=== PATIENT | male | born 1955 | race Caucasian/White ===

== ENCOUNTER → 2017-06-03 | Outpatient (CLI) | payer OTHER ==
[~2017-06-03] MED LIST: ALLO300T2 PO; ATEN-171 PO; DUTACAP PO; POTA10TA; SIMV20TA2 PO
--- NOTE | 2017-06-03 14:52 | DIAGNOSTIC IMAGING REPORT ---
SI JOINTS 3 OR MORE VIEWS HISTORY: 61 years-old Male PAIN acute pain of the SI joints. COMPARISON: None available TECHNIQUE: 3 views of the SI joints FINDINGS: Mild subchondral sclerosis involves the bilateral sacroiliac joints compatible with mild degenerative changes. No evidence of erosive arthropathy, acute fracture or subluxation. The sacrum appears intact. Ill-defined linear sclerosis of the left femoral head is noted without articular collapse. Probable phleboliths of the pelvis. IMPRESSION: 1. Mild degenerative changes of the bilateral SI joints without acute fracture. 2. Ill-defined linear sclerosis of the left femoral head may reflect avascular necrosis without articular collapse. The above report was generated using voice recognition software. It may contain grammatical, syntax or spelling errors. Electronically signed by: Bill Holloway M.D. 06/03/2017 2:50 PM Dictated Date/Time: 06/03/2017 2:48 PM
--- NOTE | 2017-06-03 14:57 | DIAGNOSTIC IMAGING REPORT ---
LEG LENGTH STUDY (WHOLE LEG) CLINICAL HISTORY: LENGTH DISCREPANCY COMPARISON STUDY: None FINDINGS: 1 leg length images demonstrate the right leg to measure 90.3 cm overall. The left leg measures 91.6 cm overall. The right leg is shorter x 1.3 cm. Right femoral length is 50.6 cm with left femoral length 51 cm. This is a 4 mm discrepancy. IMPRESSION: 1. Overall right leg length 90.3 cm 2. Overall leg left leg length 91.6 cm. 3. Right leg overall is 1.3 cm shorter than the left. The above report was generated using voice recognition software. It may contain grammatical, syntax or spelling errors. Electronically signed by: Douglas Coles M.D. 06/03/2017 2:56 PM Dictated Date/Time: 06/03/2017 2:52 PM
== END | disposition home or self-care (01) ==
LOC: C.RADBC 14:18
PROVIDERS: ATTEND Physician Assistant
DX: M46.1 Sacroiliitis, not elsewhere classified (principal); M21.751 Unequal limb length (acquired), right femur

== ENCOUNTER → 2017-06-11 | Outpatient (CLI) | payer OTHER ==
--- NOTE | 2017-06-11 09:35 | DIAGNOSTIC IMAGING REPORT ---
L HIP UNILATERAL 2 VIEWS CLINICAL HISTORY: LEFT HIP ABNORMALITY COMPARISON: 06/03/2017 DISCUSSION: The bones and joint spaces appear intact. There is no evidence of fracture, dislocation or bony disease. Leg venous sclerotic change overlying the humeral head which potentially relates to overlap artifact of the acetabulum although other etiologies not excluded. MRI left hip is suggested. IMPRESSION: Subtle findings left femoral head of uncertain significance. MRI left hip is suggested to exclude any possibility of a vascular necrosis. The above report was generated using voice recognition software. It may contain grammatical, syntax or spelling errors. Electronically signed by: Douglas Coles M.D. 06/11/2017 9:34 AM Dictated Date/Time: 06/11/2017 9:32 AM
== END | disposition home or self-care (01) ==
LOC: C.RADBC 09:16
PROVIDERS: ATTEND Physician Assistant
DX: M25.852 Other specified joint disorders, left hip (principal)

== ENCOUNTER → 2017-08-03 | Outpatient (CLI) | payer OTHER ==
[~2017-08-03] MED LIST changes: +GADAVIST IV PRN
--- NOTE | 2017-08-03 09:37 | DIAGNOSTIC IMAGING REPORT ---
MRI THE LEFT HIP WITHOUT AND WITH CONTRAST CLINICAL HISTORY: M25.559 left hip pain. Abnormal x-ray with possible avascular necrosis. COMPARISON STUDY: Conventional radiographic study dated 06/11/2017 FINDINGS: Imaging was performed in the sagittal coronal and axial planes, before and after the administration of 8 cc of intravenous Gadavist. There are no areas of marrow replacement to indicate neoplasm. There is no pathologic adenopathy. There are subchondral foci of decreased T1 and T2 signal within the left femoral head consistent with the diagnosis of avascular necrosis. There is no significant femoral head flattening. The appearance favors a chronic process. There is mild osteoarthritic change with cartilaginous thinning. There is no evidence of a pathologic joint effusion. There are no pathologically enhancing masses. There is mild bladder wall thickening. There is mild prominence the prostate. IMPRESSION: 1. 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 No evidence of femoral head flattening. 2. No evidence of occult fracture. 3. No evidence of a pathologic joint effusion. 4. Mild osteoarthritic changes with cartilaginous thinning. Electronically signed by: Ugo Carl M.D. 08/03/2017 9:36 AM Dictated Date/Time: 08/03/2017 9:21 AM
== END | disposition home or self-care (01) ==
LOC: C.MRIBC 07:36
PROVIDERS: ATTEND Physician Assistant
DX: M25.559 Pain in unspecified hip (principal)